=== PATIENT | female | born 1975 | race American Indian/Alaskan Native ===

== ENCOUNTER 2020-11-16 19:26 | Emergency (ER) | payer SELFPAY ==
[2020-11-16 19:46] VITALS: BP 114/68
[2020-11-16] MEDS ORDERED: ALBUTEROL 2.5 MG/3 ML NEBU IH ONE (19:57)
[2020-11-16] MEDS ORDERED: IPRATROPIUM 0.02% NEBU 2.5 ML IH ONE (19:57)
--- NOTE | 2020-11-16 19:57 | Emergency Department Report ---
ED Shortness of Breath HPI - General Chief Complaint: Dyspnea/Respdistress Stated Complaint: RANDAL Time Seen by Provider: 11/16/20 19:39 Source: patient Mode of arrival: Stretcher Limitations: No Limitations - History of Present Illness Initial Comments: Patient is 45 years old female with childhood asthma. Patient stated that she did not have any recent attack. Patient presented to the ER via EMS complaining of shortness of breath and wheezing for the last 2 days. Patient received albuterol, Decadron and magnesium sulfate by EMS. Upon arrival to the ER patient stated that her symptom is better. Patient denied any fever or chills. No chest pain. Patient stated that she had history of chronic anemia for which she had blood transfusion before. MD Complaint: shortness of breath, cough, "asthma attack" -: days(s) - Related Data Previous Rx's Medication Instructions Recorded Last Taken Type Albuterol Mdi (or & Nicu Only) 2 puff IH QID PRN #1 inhalation 11/16/20 Unknown Rx [ProAir HFA Inhaler] Prednisone [predniSONE 10 mg 10 mg PO .TAPER #1 tab.ds.pk 11/16/20 Unknown Rx (6-Day Pack, 21 Tabs)] Allergies Allergy/AdvReac Type Severity Reaction Status Date / Time iodine Allergy Unknown Verified 11/16/20 19:41 ED Review of Systems ROS: Stated complaint: RANDAL Other details as noted in HPI Comment: All other systems reviewed and negative Constitutional: denies: chills, fever Respiratory: shortness of breath, SOB with exertion, SOB at rest, wheezing. denies: cough, orthopnea Cardiovascular: denies: chest pain, palpitations Gastrointestinal: denies: abdominal pain, nausea, vomiting Neurological: denies: headache, weakness ED Past Medical Hx - Past Medical History Previous Medical History?: Yes Hx Asthma: Yes - Surgical History Past Surgical History?: No - Social History Smoking Status: Never Smoker Substance Use Type: None - Medications Home Medications: Home Medications Medication Instructions Recorded Confirmed Last Taken Type Albuterol Mdi (or & Nicu Only) 2 puff IH QID PRN #1 inhalation 11/16/20 Unknown Rx [ProAir HFA Inhaler] Prednisone [predniSONE 10 mg 10 mg PO .TAPER #1 tab.ds.pk 11/16/20 Unknown Rx (6-Day Pack, 21 Tabs)] ED Physical Exam - General Limitations: No Limitations General appearance: alert, in no apparent distress - Head Head exam: Present: atraumatic, normocephalic, normal inspection - Eye Eye exam: Present: normal appearance, PERRL - ENT ENT exam: Present: normal exam, normal orophraynx, mucous membranes moist - Neck Neck exam: Present: normal inspection, full ROM. Absent: tenderness, meningismus - Respiratory Respiratory exam: Present: wheezes, prolonged expiratory. Absent: rales, rhonchi, accessory muscle use, decreased breath sounds - Cardiovascular Cardiovascular Exam: Present: regular rate, normal rhythm, normal heart sounds - GI/Abdominal GI/Abdominal exam: Present: soft, normal bowel sounds. Absent: distended, te nderness, guarding, rebound, rigid, organomegaly, mass, bruit, pulsatile mass, hernia - Extremities Exam Extremities exam: Present: normal inspection, full ROM, normal capillary refill. Absent: pedal edema, calf tenderness - Back Exam Back exam: Present: normal inspection, full ROM. Absent: CVA tenderness (R), CVA tenderness (L) - Neurological Exam Neurological exam: Present: alert, oriented X3, CN II-XII intact, normal gait, reflexes normal. Absent: motor sensory deficit - Psychiatric Psychiatric exam: Present: normal mood - Skin Skin exam: Present: warm, intact, normal color ED Course Vital Signs 11/16/20 11/16/20 19:41 20:24 Temperature 98 F Pulse Rate 80 Pulse Rate [ 85 Bilateral Throughout] Respiratory 16 Rate Respiratory 18 Rate [Bilateral Throughout] Blood Pressure 114/68 O2 Sat by Pulse 96 Oximetry ED Medical Decision Making - Lab Data Result diagrams: 11/16/20 19:59 11/16/20 19:59 - EKG Data -: EKG Interpreted by Nd EKG shows normal: sinus rhythm Rate: normal - EKG Data Interpretation: no acute changes - Radiology Data Radiology results: report reviewed - Medical Decision Making Patient is 45 years old female with childhood asthma. Patient stated that she did not have any recent attack. Patient presented to the ER via EMS complaining of shortness of breath and wheezing for the last 2 days. Patient received albuterol, Decadron and magnesium sulfate by EMS. Upon arrival to the ER patient stated that her symptom is better. Patient denied any fever or chills. No chest pain. Patient stated that she had history of chronic anemia for which she had blood transfusion before. EKG is unremarkable. Chest x-ray is negative for acute finding. Patient received albuterol and Atrovent in the emergency room. Labs reviewed and is unremarkable except for slightly elevated white blood cells. Patient stated that she is feeling much better. Patient given prescription for albuterol and prednisone and advised to follow-up with her primary care physician in the next 2 to 3 days and to return to the ER if she develop any new symptoms. Critical care attestation.: If time is entered above; I have spent that time in minutes in the direct care of this critically ill patient, excluding procedure time. ED Disposition Clinical Impression: Shortness of breath, Acute asthma exacerbation Disposition: TO HOME OR SELFCARE Is pt being admited?: No Condition: Stable Instructions: Asthma, Adult Prescriptions: Prednisone [predniSONE 10 mg (6-Day Pack, 21 Tabs)] 10 mg PO .TAPER #1 tab.ds.pk Albuterol Mdi (or & Nicu Only) [ProAir HFA Inhaler] 2 puff IH QID PRN #1 inhalation PRN Reason: Shortness Of Breath Referrals: [facility] [Other] - 3-5 Days Forms: Work/School Release Form(ED)
--- NOTE | 2020-11-16 20:24 | XRay Report ---
CHEST 1 VIEW 11/16/2020 7:55 PM INDICATION / CLINICAL INFORMATION: Dyspnea. COMPARISON: None available. FINDINGS: SUPPORT DEVICES: None. HEART / MEDIASTINUM: No significant abnormality. LUNGS / PLEURA: Clear lungs. No significant pleural effusion. No pneumothorax. ADDITIONAL FINDINGS: No significant additional findings. IMPRESSION: 1. No acute abnormality of the chest. Signer Name: David Prince MD Signed: 11/16/2020 8:20 PM Workstation Name: [id number]
[2020-11-16 20:26] LABS: Blood Urea Nitrogen 6 mg/dL (7-17); Calcium 8.8 mg/dL (8.4-10.2); Hemolysis Index 11
[2020-11-16 20:38] LABS: Hematocrit 35.3 % (30.3-42.9); Hemoglobin 11.3 gm/dl (10.1-14.3); Mean Corpuscular HGB Conc 32 % (30-34); Mean Corpuscular Volume 78 fl (79-97); Platelet Count 301 K/mm3 (140-440); Red Blood Count 4.55 M/mm3 (3.65-5.03)
[2020-11-16 20:45] LABS: BUN/Creatinine Ratio 12
[2020-11-16 20:46] LABS: Red Cell Distribution Width 28.7 % (13.2-15.2)
[2020-11-16 20:49] LABS: INR 0.96 (0.87-1.13)
[2020-11-16 20:50] LABS: Partial Thromboplastin Time 30.9 Sec. (24.2-36.6)
[2020-11-16 21:23] LABS: Anisocytosis 1+; Band Neutrophils # (Manual) 0.1 K/mm3; Hypochromasia 1+; Total Cells Counted 100
== END 2020-11-16 21:57 | disposition home or self-care (01) ==
LOC: ED 19:26
DX: J45.901 Unspecified asthma with (acute) exacerbation (principal); R06.02 Shortness of breath; Z79.899 Other long term (current) drug therapy; Z91.041 Radiographic dye allergy status
CPT/HCPCS: 36415; 71045; 80048; 83880; 84484; 85007; 85025; 85610; 85730; 93005; 94640; 94644